=== PATIENT | female | born 1990 | race Caucasian/White ===

== ENCOUNTER 2020-01-06 08:04 | Day surgery (SDC) | payer OTHER ==
[2020-01-04 10:22] VITALS: BMI 38.7
[2020-01-06 10:21] VITALS: TEMP 97.9
[2020-01-06 10:34] VITALS: BP 118/72; PULSE 74
--- NOTE | 2020-01-09 15:07 | PATH ---
Surgical Pathology Report Patient Name: JACQUI BOSWELL [facility]. Rec. #: [id number] /Age/Gender: 1990 (Age: 29) / F Account: [id number] Location: U-ENDOSCOPY Taken: 01/06/2020 Received: 01/06/2020 Reported: 01/09/2020 Physicians: Cory Phan M.D. Specimen(s) Received A: BULB AND SECOND PORTION DUODENUM B: STOMACH C: ESOPHAGUS Clinical History Screening prior to bariatric surgery Postoperative diagnosis: Esophagitis, gastric erosions Final Diagnosis A. BULB AND SECOND PORTION DUODENUM, BIOPSY: DUODENAL MUCOSA WITH NO SIGNIFICANT PATHOLOGIC CHANGE. NO HISTOLOGIC EVIDENCE OF INTRAEPITHELIAL LYMPHOCYTOSIS. B. STOMACH, BIOPSY: GASTRIC MUCOSA WITH CHRONIC GASTRITIS. IMMUNOSTAIN FOR H. PYLORI IS NEGATIVE. NEGATIVE FOR INTESTINAL METAPLASIA. C. ESOPHAGUS, BIOPSY: ESOPHAGEAL MUCOSA WITH REFLUX ESOPHAGITIS. Electronically Signed Tamia Fan M.D. Gross Description A. Received in formalin, labeled "bulb and second portion of duodenum" is a mejía, irregular portion of soft tissue measuring 0.4 cm. in greatest dimension. The specimen is submitted in toto in one cassette. B. Received in formalin, labeled "stomach biopsy" are 2 mejía, irregular portions of soft tissue measuring 0.2 and 0.4 cm. in greatest dimension. The specimens are submitted in toto in one cassette. C. Received in formalin, labeled "esophagus biopsy" is a mejía, irregular portion of soft tissue measuring 0.3 cm. in greatest dimension. The specimen is submitted in toto in one cassette. /01/06/2020 saudi01/06/2020
== END 2020-01-06 10:45 | disposition home or self-care (01) ==
LOC: JASU-ENDO 08:04
PROVIDERS: ATTEND Internal Medicine Gastroenterology
PROC: 0DB78ZX Excision of Stomach, Pylorus, Via Natural or Artificial Opening Endoscopic, Diagnostic (ICD-10-PCS; 2020-01-06)
PROC: 0DB68ZX Excision of Stomach, Via Natural or Artificial Opening Endoscopic, Diagnostic (ICD-10-PCS; 2020-01-06)
PROC: 0DB58ZX Excision of Esophagus, Via Natural or Artificial Opening Endoscopic, Diagnostic (ICD-10-PCS; 2020-01-06)
PROC: 0DB98ZX Excision of Duodenum, Via Natural or Artificial Opening Endoscopic, Diagnostic (ICD-10-PCS; principal; 2020-01-06 09:30)
DX: Z01.818 Encounter for other preprocedural examination (principal); K29.50 Unspecified chronic gastritis without bleeding; K21.0 Gastro-esophageal reflux disease with esophagitis; E66.9 Obesity, unspecified; Z68.38 Body mass index [BMI] 38.0-38.9, adult; Z88.6 Allergy status to analgesic agent; K22.10 Ulcer of esophagus without bleeding
CPT/HCPCS: 81025; 88305-TC; 88342-TC